=== PATIENT | female | born 1995 | race Caucasian/White ===

== ENCOUNTER 2020-05-23 21:40 | Emergency (ER) | payer MEDICAID ==
[~2020-05-23] VITALS: Ht 170.2 cm; Wt 56.7 kg
[2020-05-23 21:58] VITALS: Ht 170.2 cm; Wt 56.7 kg
[2020-05-23 23:24] VITALS: BP 104/49
== END 2020-05-23 23:24 | disposition home or self-care (01) ==
LOC: ED 21:40
DX: F10.129 Alcohol abuse with intoxication, unspecified (principal)
CPT/HCPCS: J2765; Q0162